=== PATIENT | female | born 1990 | race Asian ===

== ENCOUNTER 2016-07-07 22:52 | Outpatient (CLI) | payer OTHER ==
[~2016-07-07] VITALS: Ht 157.5 cm; Wt 54.5 kg
[2016-07-07] MEDS ORDERED: PREN1TAB29 (23:51)
[2016-07-07 23:53] VITALS: Ht 157.5 cm; Wt 54.5 kg
[2016-07-11] MEDS ORDERED: AMX500 PO (17:31)
== END 2016-07-07 23:57 | disposition home or self-care (01) ==
LOC: C.LD 22:52 → C.OPB 22:52
PROVIDERS: ATTEND Obstetrics & Gynecology
DX: O62.9 Abnormality of forces of labor, unspecified (principal); O26.893 Other specified pregnancy related conditions, third trimester; N89.8 Other specified noninflammatory disorders of vagina; Z3A.39 39 weeks gestation of pregnancy